=== PATIENT | male | born 1990 | race Caucasian/White ===

== ENCOUNTER 2018-12-25 03:17 | Emergency (ER) | payer SELFPAY ==
[~2018-12-25] VITALS: Ht 172.7 cm; Wt 77.1 kg
[2018-12-25 03:22] VITALS: BP 133/85
--- NOTE | 2018-12-25 03:22 | NUR ---
PT TO ER BB RA, PT FOUND SLEEPING ON SIDEWALK. NO SIGNS OF DISTRESS NOTED. NO SIGNS OF TRAUMA NOTED. PT AWAKE AND ANSWETRING QUESTIONS BUT DOES APPEAR INTOXICATED. PT AMBULATORY WITH STEADY GAIT. ADMITS TO DRINKING ALCOHOL TONIGHT. PT TO ER BED
--- NOTE | 2018-12-25 04:17 | NUR ---
Patient ran out of ER and eloped. Dr regalado notified.
== END 2018-12-25 05:57 | disposition left against medical advice (07) ==
LOC: EDBD 03:23 → ER 03:23
DX: F10.129 Alcohol abuse with intoxication, unspecified (principal); Y90.9 Presence of alcohol in blood, level not specified; Z60.2 Problems related to living alone